=== PATIENT | female | born 1985 | race Caucasian/White ===

== ENCOUNTER → 2016-09-14 06:37 | Day surgery (SDC) | payer OTHER ==
[~2016-09-14 06:37] MED LIST: Atracurium* 10 MG/ML 10 ML VIAL ONE; Buffered Lidocaine 1% SYR 3ML* 3 ML/SYR SYRINGE INTRADERM ONE; Bupivacaine 0.5% W/EPI SDV* 30 ML VIAL ONE; Dexamethasone IV* 4 MG/ML 1 ML (4 MG) ONE; DiMENhydriNATE IV* 50 MG/ML VIAL IV PUSH PRN; Glycopyrrolate IV* 0.2 MG/ML 1 ML VIAL ONE; HYDROcodone/ACETAMIN 5-325 MG* 1 TAB PO PRN; HYDROmorphone INJ* 1 MG/ML CARPUJECT SYRINGE IV PRN; Ketorolac INJ* 30 MG/ML 1 ML VIAL ONE; Midazolam* 1 MG/ML 5 ML VIAL (5 MG) ONE; Neostigmine Methylsulfate* 2 MG/2 ML SYRINGE ONE; Ondansetron INJ* 2 MG/ML VIAL IV PRN; Ondansetron INJ* 2 MG/ML VIAL ONE; Propofol* 10 MG/ML 20 ML BTL IV PUSH ONE; fentaNYL* 50 MCG/ML 2 ML VIAL (100 MCG VIAL) IV PRN; fentaNYL* 50 MCG/ML 2 ML VIAL (100 MCG VIAL) ONE; oxyCODONE TAB* 5 MG TAB PO PRN
[2016-09-14 07:07] LABS: Manual Entry Verification CAR0052; UR Preg Internal Control QC Line Present; UR Preg Kit Lot# 6060104
[2016-09-14 10:05] VITALS: BP 99/61
--- NOTE | 2016-09-14 22:16 | OP ---
DATE OF OPERATION: 09/14/16 - SDS DATE OF : 89 SURGEON: Jarod Mukherjee MD ANESTHESIOLOGIST: Donte Lawrence MD ANESTHESIA: General endotracheal tube. PRE-OP DIAGNOSIS: Desires permanent sterilization. POST-OP DIAGNOSIS: Desires permanent sterilization. OPERATIVE PROCEDURE: Laparoscopic bilateral tubal ligation. FINDINGS: On laparoscopy, the anterior bladder flap appeared normal, the cul-de - sac appeared normal, both tubes and ovaries appeared normal. The liver surface was smooth. The gallbladder appeared normal. Appendix could not be well visualized. EBL: Minimal. SPECIMEN: None. DESCRIPTION OF PROCEDURE: The patient was identified, procedure identified as a laparoscopic bilateral tubal ligation. The patient was taken to the operating room and prepped and draped in the usual fashion in dorsal lithotomy position under general anesthesia. A small infraumbilical incision was made and Veress needle was inserted through this. The abdomen was insufflated to 15 mmHg. The Veress needle was removed and a trocar was inserted. Trocar was removed from the sheath and laparoscope was inserted and the above findings were noted. A second trocar was inserted 2-cm above the pubic symphysis in the midline under direct visualization. The bipolar Kleppinger cautery was inserted. The left fallopian tube was grasped in its fimbriated portion, followed out to its fimbriated ends, and fulgurated x4. The same procedure was done on the right after following it out to its fimbriated ends. Good hemostasis was verified. All instruments were removed from the abdomen. The abdomen was deflated of CO2 and all sponge and instrument counts were correct. The skin was closed with Indermil skin glue and the patient returned to the recovery room in stable condition. [id number]/[facility] #: [id number] [facility]
== END | disposition home or self-care (01) ==
LOC: OR 06:37
PROVIDERS: ATTEND Obstetrics & Gynecology
DX: Z30.2 Encounter for sterilization (principal); O24.439 Gestational diabetes mellitus in the puerperium, unspecified control
CPT/HCPCS: 81025; J1100; J1885; J2250; J2405; J2704; J3010

== ENCOUNTER 2018-03-08 12:21 | Emergency (ER) | payer OTHER ==
[2018-03-08] MEDS ORDERED: NS 0.9% 1000 ML* 1,000 ML IV ONE (13:47)
[2018-03-08] MEDS ORDERED: Ketorolac INJ* 30 MG/ML 1 ML VIAL IV PUSH ONE (13:47)
[2018-03-08 14:05] LABS: ABS Basophils 0 10^3/ul (0-0.2); ABS Eosinophils 0.7 10^3/ul (0-0.6); ABS Monocytes 0.5 10^3/ul (0-0.8); ABS Neutrophils 5.5 10^3/ul (1.5-7.7); ABS Nucleated RBC 0 10^3/ul; Eosinophil % 8.7 % (0-6); Hematocrit 39 % (35-47); Hemoglobin 13.3 g/dl (12.0-16.0); Lymphocyte % 13.1 % (25-47); Mean Corpuscular HGB Conc 34 g/dl (31-36); Mean Corpuscular Hemoglobin 28 pg (27-31); Mean Corpuscular Volume 81 fL (80-97); Mean Platelet Volume 8.2 um3 (7.4-10.4); Nucleated Red Blood Cells % 0; Platelet Count 189 10^3/ul (150-450); Red Blood Count 4.81 10^6/ul (4.00-5.40); Red Cell Distribution Width 14 % (10.5-15); White Blood Count 7.8 10^3/ul (3.5-10.8)
[2018-03-08 14:31] LABS: EGFR Non-African American 77.5 (>60)
[2018-03-08 15:57] LABS: Urine Appearance Clear; Urine Blood 2+ (Negative); Urine Color Yellow; Urine Ketones Negative (Negative); Urine Protein Negative (Negative); Urine Red Blood Cell 1+(3-5/hpf) (Absent); Urine Specific Gravity 1.009 (1.010-1.030); Urine Urobilinogen Negative (Negative); Urine White Blood Cell Trace(0-5/hpf) (Absent)
[2018-03-08 16:39] VITALS: BP 116/74
--- NOTE | 2018-03-08 17:02 | ED ---
Abdominal Pain/Female - HPI Summary HPI Summary: Patient is a 32-year-old female who presents emergency department for lower pelvic pain times one day. Patient states she started her menstrual cycle yesterday. She describes pain as cramping and sharp sensation. She states she typically gets pain with her periods. Flow is normal for patient. She denies fever, chills, vomiting, urinary symptoms. Symptoms are mild to moderate in severity. She [place] past medical history. No current modifying factors. - History of Current Complaint Chief Complaint: EDAbdPain Stated Complaint: ABD PAIN Time Seen by Provider: 03/08/18 13:41 Hx Obtained From: Patient Pain Intensity: 3 Pain Scale Used: 0-10 Numeric Allergies/Adverse Reactions: Allergies Allergy/AdvReac Type Severity Reaction Status Date / Time No Known Allergies Allergy Verified 03/08/18 12:46 PMH/Surg Hx/FS Hx/Imm Hx Previously Healthy: Yes Endocrine/Hematology History: Reports: Hx Diabetes - type 2 no meds Sensory History: Denies: Hx Contacts or Glasses, Hx Hearing Aid Opthamlomology History: Denies: Hx Contacts or Glasses Neurological History: Reports: Other Neuro Impairments/Disorders - ADD - Surgical History Surgery Procedure, Year, and Place: ligament thumb [place] [facility] [place] 2006-. tonsillectomy in the past Hx Anesthesia Reactions: No Infectious Disease History: No Infectious Disease History: Denies: Traveled Outside the [place] in Last 30 Days - Family History Known Family History: Positive: Other - noncontributory - Social History Occupation: Works From/At Home Lives: With Family Alcohol Use: None Substance Use Type: Reports: None Smoking Status (MU): Never Smoked Tobacco Have You Smoked in the Last Year: No Review of Systems Constitutional: Negative Cardiovascular: Negative Respiratory: Negative Positive: Abdominal Pain. Negative: Vomiting, Diarrhea, Nausea Genitourinary: Negative All Other Systems Reviewed And Are Negative: Yes Physical Exam Triage Information Reviewed: Yes Vital Signs On Initial Exam: Initial Vitals Temp Pulse Resp BP Pulse Ox 98.8 F 104 20 125/76 98 03/08/18 12:41 03/08/18 12:41 03/08/18 12:41 03/08/18 12:41 03/08/18 12:41 Vital Signs Reviewed: Yes Appearance: Positive: Well-Appearing - Patient lying in bed in no acute distress. Skin: Positive: Warm, Dry Head/Face: Positive: Normal Head/Face Inspection Eyes: Positive: Normal Neck: Positive: Supple Respiratory/Lung Sounds: Positive: Breath Sounds Present Cardiovascular: Positive: Normal, RRR Abdomen Description: Positive: Other: - Abdomen is soft with mild diffuse lower abdominal tenderness. No rebound tenderness or guarding. Neurological: Positive: Normal, CN Intact II-III Psychiatric: Positive: Affect/Mood Appropriate Diagnostics - Vital Signs Vital Signs Temp Pulse Resp BP Pulse Ox 03/08/18 16:15 98.6 F 89 14 116/74 100 03/08/18 16:00 89 99 03/08/18 15:55 91 116/74 100 03/08/18 15:25 86 121/80 100 03/08/18 15:00 88 100 03/08/18 14:55 93 119/80 100 03/08/18 14:41 91 98 03/08/18 12:41 98.8 F 104 20 125/76 98 - Laboratory Lab Results: Lab Results 03/08/18 03/08/18 03/08/18 Range/Units 13:54 13:54 15:41 WBC 7.8 (3.5-10.8) 10^3/ul RBC 4.81 (4.00-5.40) 10^6/ul Hgb 13.3 (12.0-16.0) g/dl Hct 39 (35-47) % MCV 81 (80-97) fL MCH 28 (27-31) pg MCHC 34 (31-36) g/dl RDW 14 (10.5-15) % Plt Count 189 (150-450) 10^3/ul MPV 8.2 (7.4-10.4) um3 Neut % (Auto) 70.8 (38-83) % Lymph % (Auto) 13.1 L (25-47) % [place] % (Auto) 7.1 H (0-7) % Eos % (Auto) 8.7 H (0-6) % Baso % (Auto) 0.3 (0-2) % Absolute Neuts (auto) 5.5 (1.5-7.7) 10^3/ul Absolute Lymphs (auto) 1.0 (1.0-4.8) 10^3/ul Absolute Monos (auto) 0.5 (0-0.8) 10^3/ul Absolute Eos (auto) 0.7 H (0-0.6) 10^3/ul Absolute Basos (auto) 0 (0-0.2) 10^3/ul Absolute Nucleated RBC 0 10^3/ul Nucleated RBC % 0 Sodium 138 (135-145) mmol/L Potassium 4.0 (3.5-5.0) mmol/L Chloride 104 (101-111) mmol/L Carbon Dioxide 25 (22-32) mmol/L Anion Gap 9 (2-11) mmol/L BUN 10 (6-24) mg/dL Creatinine 0.86 (0.51-0.95) mg/dL Est GFR ( Amer) 93.7 (>60) Est GFR (Non-Af Amer) 77.5 (>60) BUN/Creatinine Ratio 11.6 (8-20) Glucose 126 H (70-100) mg/dL Calcium 9.3 (8.6-10.3) mg/dL Total Bilirubin 0.50 (0.2-1.0) mg/dL AST 16 (13-39) U/L ALT 10 (7-52) U/L Alkaline Phosphatase 46 (34-104) U/L Total Protein 7.1 (6.4-8.9) g/dL Albumin 4.2 (3.2-5.2) g/dL Globulin 2.9 (2-4) g/dL Albumin/Globulin Ratio 1.4 (1-3) Beta HCG, Quant < 0.60 mIU/mL Urine Color Yellow Urine Appearance Clear Urine pH 7.0 (5-9) Ur Specific [place] 1.009 L (1.010-1.030) Urine Protein Negative (Negative) Urine Ketones Negative (Negative) Urine Blood 2+ A (Negative) Urine Nitrate Negative (Negative) Urine Bilirubin Negative (Negative) Urine Urobilinogen Negative (Negative) Ur Leukocyte Esterase Negative (Negative) Urine WBC (Auto) Trace(0-5/hpf) (Absent) Urine RBC (Auto) 1+(3-5/hpf) A (Absent) Ur Squamous Epith Cells Present A (Absent) Urine Bacteria Absent (Absent) Urine Glucose Negative (Negative) Result Diagrams: 03/08/18 13:54 03/08/18 13:54 Lab Statement: Any lab studies that have been ordered have been reviewed, and results considered in the medical decision making process. Abdominal Pain Fem Course/Dx - Course Course Of Treatment: Pt. presenting with lower pelvic cramping and pain during her menstrual cycle. She has a benign abdominal exam. She is afebrile with stable vital signs. IV fluids and IV Toradol. We'll check basic labs and . Blood work is unremarkable. Negative . Reexamination patient states she is feeling better. Was discharged home. Advised to take anti-inflammatories as directed. To apply warm compresses. Close follow-up with PCP and return to the ear symptoms change or worsen. Patient understands and agrees with plan. - Diagnoses Provider Diagnoses: Dysmenorrhea Discharge - Sign-Out/Discharge Documenting (check all that apply): Patient Departure - Discharge Plan Condition: Good Disposition: HOME Patient Education Materials: Dysmenorrhea (ED) Referrals: Terri Prieto MD [Primary Care Provider] - Additional Instructions: Follow up with your PCP NSAIDS for pain as directed Apply warm compress Return to ER if symptoms change or worsen - Billing Disposition and Condition Condition: GOOD Disposition: Home
== END 2018-03-08 16:15 | disposition home or self-care (01) ==
LOC: ED 12:21
DX: N94.6 Dysmenorrhea, unspecified (principal); E11.9 Type 2 diabetes mellitus without complications
CPT/HCPCS: 36415; 80053; 81003; 81015; 84702; 85025; 87086; 96361; 96374; 99283; J1885

== ENCOUNTER 2021-06-29 00:15 | Observation (INO) ==
[2021-06-29] MEDS ORDERED: Lactated Ringers 1000 ml BAG 1,000 ML IV ONE ×2 (00:53→09:27)
[2021-06-29] MEDS ORDERED: Ondansetron 4 mg VIAL 2 MG/ML 2 ml VIAL IV ONE (00:53)
[2021-06-29] MEDS ORDERED: Morphine 4 MG/ML VIAL (1 ml) IV ONE ×2 (00:53→02:51)
[2021-06-29 01:14] LABS: ABS Eosinophils 0.4 10^3/ul (0-0.6); ABS Lymphocytes 1.9 10^3/ul (1.0-4.8); ABS Monocytes 0.4 10^3/ul (0-0.8); Eosinophil % 5.5 %; Hematocrit 38 % (35-47); Hemoglobin 13.1 g/dL (12.0-16.0); Lymphocyte % 27.8 %; Mean Corpuscular HGB Conc 35 g/dL (31-36); Mean Corpuscular Hemoglobin 29 pg (27-31); Mean Corpuscular Volume 85 fL (80-97); Mean Platelet Volume 8.8 fL (7.4-10.4); Platelet Count 207 10^3/uL (150-450); Red Blood Count 4.45 10^6 /uL (3.70-4.87); Red Cell Distribution Width 12 % (10-15); White Blood Count 6.8 10^3/uL (3.5-10.8)
[2021-06-29 01:31] LABS: ALT 13 U/L (7-52); AST 15 U/L (13-39); Albumin 4.2 g/dL (3.2-5.2); Albumin/Globulin Ratio 1.4 (1-3); Alkaline Phosphatase 52 U/L (35-149); Anion Gap 7 mmol/L (2-11); Blood Urea Nitrogen 14 mg/dL (6-24); CO2 Carbon Dioxide 27 mmol/L (22-32); Chloride 104 mmol/L (101-111); Globulin 2.9 g/dL (2-4); Glucose 187 mg/dL (70-100); Potassium 3.4 mmol/L (3.5-5.0); Sodium 138 mmol/L (135-145); Total Protein 7.1 g/dL (6.4-8.9); eGFR CKD-EPI 91.4 (>60)
[2021-06-29 01:38] LABS: HCG Pregnancy < 0.60 mIU/mL
[2021-06-29 02:50] LABS: Urine Appearance Cloudy; Urine Bilirubin Negative (Negative); Urine Blood Negative (Negative); Urine Color Yellow; Urine Glucose Negative (Negative); Urine Ketones Trace (Negative); Urine Nitrite Negative (Negative); Urine Protein 1+(30 mg/dL) (Negative); Urine Specific Gravity 1.024 (1.002-1.030); Urine Urobilinogen Negative (Negative)
[2021-06-29 02:55] LABS: Urine Bacteria Absent (Absent); Urine Red Blood Cell 3+(>10/hpf) (Absent); Urine Squamous Epithelial Cell Present (Absent); Urine White Blood Cell 2+(11-20/hpf) (Absent)
[2021-06-29] MEDS ORDERED: cefTRIAXone 1 gm/50 mL NS BAG 1 GM/50 ML BAG IV ONE (03:19)
[2021-06-29] MEDS ORDERED: Gentamicin ADULT 100 MG in NS 0.9% 100 ml BAG 100 ML IVPB ONE (03:19)
[2021-06-29] MEDS ORDERED: Ondansetron 4 mg VIAL 2 MG/ML 2 ml VIAL IV PRN ×2 (04:11→16:17)
[2021-06-29] MEDS ORDERED: Morphine 2 MG/ML SYRINGE IV PRN (04:19)
[2021-06-29 04:58] LABS: Rapid COVID-19 Molecular Undetected (Undetected)
[2021-06-29] MEDS ORDERED: Potassium Chlor 20 meq TAB.ER PO ONE (06:58)
[2021-06-29] MEDS ORDERED: Mometasone/Formoter 100/5 MDI INH PRN (08:39)
[2021-06-29] MEDS ORDERED: Albuterol HFA INHALER 8 gm MDI INH PRN (08:39)
[2021-06-29] MEDS ORDERED: Metoclopramide 5 MG/ML VIAL (10 mg) IV PRN (16:17)
[2021-06-29] MEDS ORDERED: Naloxone 0.4 mg VIAL 0.4 mg/ml 1 ml VIAL IV PRN (16:17)
[2021-06-29] MEDS ORDERED: HYDROcodone/ACETAMIN 5/325 mg TAB PO PRN (16:17)
[2021-06-29] MEDS ORDERED: fentaNYL 100 mcg/2 ml 50 MCG/ML VIAL IV PRN (16:17)
[2021-06-29] MEDS ORDERED: Dexamethasone IV 4 MG/ML VIAL 1 ml VIAL ONE (16:47)
[2021-06-29] MEDS ORDERED: Ondansetron 4 mg VIAL 2 MG/ML 2 ml VIAL ONE (16:47)
[2021-06-29] MEDS ORDERED: Midazolam 2 mg/2 ml VIAL 1 mg/ml 2 ml VIAL (2 mg) ONE (16:47)
[2021-06-29] MEDS ORDERED: Propofol 10 MG/ML 20 ML BTL ONE (16:47)
[2021-06-29] MEDS ORDERED: Lidocaine 2% PF 5 ML VIAL ONE (16:47)
[2021-06-29] MEDS ORDERED: fentaNYL 100 mcg/2 ml 50 MCG/ML VIAL ONE (16:47)
[2021-06-29] MEDS ORDERED: Levofloxacin 500 MG IVPREMIX 500 MG/100 ML BAG ONE (17:28)
[2021-06-29 19:47] VITALS: BP 108/66
[2021-06-30] MEDS ORDERED: Mometasone/Formoter 100/5 MDI INH SCH (09:00)
== END 2021-06-29 19:51 | disposition home or self-care (01) ==
LOC: EDHOLD 00:15 → ED 00:15 → EDHOLD 13:49
PROVIDERS: ADMIT Internal Medicine; ATTEND Internal Medicine